=== PATIENT | female | born 1980 | race Caucasian/White ===

== ENCOUNTER 2018-06-07 09:54 | Day surgery (SDC) | payer OTHER ==
[~2018-06-07 09:54] MED LIST: ACETAMINOPHEN 1,000 MG/100 ML INJ IV ONE; DEXAMETHASONE SOD PHOS 4 MG/ML VIAL ONE; FAMOTIDINE/PF 20 MG/2 ML VIAL ONE; FENTANYL 250MCG/5ML VIAL ONE; GLYCOPYRROLATE 0.2 MG/1 ML 1 ML ONE; LACTATED RINGERS 1,000 ML IV.SOLN IV ONE; LIDOCAINE HCL/PF 2% 100 MG/5 ML VIAL IJ ONE; MIDAZOLAM HCL 2 MG/2 ML VIAL ONE; MORPHINE SULFATE 10 MG/ML VIAL ONE; ONDANSETRON HCL/PF 4 MG/ 2ML VIAL ONE; PROPOFOL 200 MG/20 ML VIAL IV ONE; ROCURONIUM BROMIDE 10 MG/ML 5ML VIAL ONE; SEVOFLURANE 250 ML LIQUID IH ONE; SUGAMMADEX 200 mg/2mL 200 MG/2 ML VIAL IV ONE; ceFAZolin SODIUM 1 GM VIAL ONE; ePHEDrine SULFATE 50 MG/1 ML IVP ONE
[2018-06-07] MEDS ORDERED: ENOXAPARIN SODIUM 40 MG/0.4 ML DISP.SYRIN SQ ONE (10:14)
[2018-06-07] MEDS ORDERED: FAMOTIDINE/PF 20 MG/2 ML VIAL ONE (10:15)
[2018-06-07] MEDS ORDERED: LACTATED RINGERS 1,000 ML IV ONE (10:15)
[2018-06-07] MEDS ORDERED: ONDANSETRON HCL/PF 4 MG/ 2ML VIAL ONE (18:24)
[2018-06-07] MEDS ORDERED: oxyCODONE/ACETAMINOPHEN 5/325 TABLET PO ONE (22:14)
== END 2018-06-07 22:30 ==
LOC: OPSURG 09:54
PROVIDERS: ATTEND Surgery
DX: K95.09 Other complications of gastric band procedure (principal); Z68.43 Body mass index [BMI] 50.0-59.9, adult; K21.9 Gastro-esophageal reflux disease without esophagitis; I10 Essential (primary) hypertension; F32.9 Major depressive disorder, single episode, unspecified; F41.9 Anxiety disorder, unspecified; Z32.02 Encounter for pregnancy test, result negative
CPT/HCPCS: 81025; J0690; J1100; J1650; J2001; J2250; J2270; J2405; J2704; J3490; S0028; 43774; A9270-GY; J7030; J7120

== ENCOUNTER 2018-10-31 09:46 | Day surgery (SDC) | payer OTHER ==
[~2018-10-31 09:46] MED LIST changes: -ACETAMINOPHEN 1,000 MG/100 ML INJ IV ONE; +BUPIV. HCL 0.25% (2.5MG/ML)/EPI. (1:200,000) PF 30 ML VIAL IJ ONE; -DEXAMETHASONE SOD PHOS 4 MG/ML VIAL ONE; +DEXAMETHASONE SODIUM PHOSPHATE 10 MG/ML VIAL ONE; +ENOXAPARIN SODIUM 40 MG/0.4 ML DISP.SYRIN SQ ONE; +FAMOTIDINE 20 MG/2 ML VIAL IV ONE; -FAMOTIDINE/PF 20 MG/2 ML VIAL ONE; -FENTANYL 250MCG/5ML VIAL ONE; -GLYCOPYRROLATE 0.2 MG/1 ML 1 ML ONE; +LABETALOL HCL 20 MG/4 ML SYRINGE IV ONE; +LIDOCAINE HCL 1% PF 300MG/30ML VIAL ONE; +LIDOCAINE HCL 2% PF 100MG/5ML VIAL IJ ONE; -LIDOCAINE HCL/PF 2% 100 MG/5 ML VIAL IJ ONE; -MORPHINE SULFATE 10 MG/ML VIAL ONE; +PROMETHAZINE HCL 25 MG/ML VIAL ONE; +SCOPOLAMINE HYDROBROMIDE 1.5MG/72HR PATCH TD ONE; +SODIUM CHLORIDE IRRIG SOLUTION 3,000 ML IRRIG.SOLN IR ONE; -SUGAMMADEX 200 mg/2mL 200 MG/2 ML VIAL IV ONE; +SUGAMMADEX SODIUM 200 MG/2 ML VIAL IV ONE; +THROMBIN (BOVINE) 20,000 UNIT VIAL TP ONE; +fentaNYL CITRATE/PF 100 MCG/2 ML INJ. ONE
[2018-10-31] MEDS ORDERED: PROMETHAZINE HCL 25 MG/ML VIAL ONE (14:40)
[2018-10-31] MEDS ORDERED: fentaNYL CITRATE/PF 100 MCG/2 ML INJ. ONE (14:47)
[2018-10-31] MEDS ORDERED: ONDANSETRON HCL/PF 4 MG/ 2ML VIAL ONE (15:16)
--- NOTE | 2018-12-23 08:47 | Operative Note ---
OPERATIVE REPORT PATIENT NAME: DEANNA RICHARDSON DATE OF : 1980 MR#: PROCEDURE DATE: 10/31/2018 PREOPERATIVE DIAGNOSIS: 1. Morbid obesity. 2. History of lap band placement. 3. Gastroesophageal reflux disease. 4. Sleep apnea. POSTOPERATIVE DIAGNOSIS: 1. Morbid obesity. 2. History of lap band placement. 3. Gastroesophageal reflux disease. 4. Sleep apnea. PROCEDURES PERFORMED: 1. Laparoscopic lysis of adhesions. 2. Laparoscopic sleeve gastrectomy. 3. Upper gastrointestinal endoscopy. SURGEON: Hermelindo Sanchez M.D. INDICATIONS FOR PROCEDURE: Ms. Deanna Richardson is a 38-year-old female who presented with features of morbid obesity. She has a history of lap band placement and subsequent removal. The patient presented for laparoscopic sleeve gastrectomy. DESCRIPTION OF PROCEDURE: After explaining to the patient in detail and informed consent was obtained, the patient was identified in the preoperative holding area. The patient was transferred to the operating room and was placed in supine position. Sequential compressive devices were placed for DVT prophylaxis. Preoperative antibiotics were given. After induction of anesthesia, the abdomen was prepped and draped in a sterile fashion. Through a left upper quadrant 1-cm incision, and using Optiview technique, the peritoneal cavity was entered and pneumoperitoneum was created. Thereafter, under direct vision, another 5-mm trocar was placed in the left midabdomen and another 15-mm trocar was placed in the right midabdomen. Through a 1-cm incision in the right subcostal region, another 5-mm trocar was placed. Through a 1-cm incision in the epigastrium, a [place] retractor was introduced and the left lobe of the liver was retracted. On initial inspection, the patient was noted to have no evidence of hiatal hernia. I took down the gastroepiploic vessels using a LigaSure. This was continued superiorly. The short gastric vessels were taken down. The gastrophrenic ligament was divided and the Angle of His was mobilized. The posterior attachments of the stomach on the pancreas were released. Distally, the gastroepiploic vessels were taken down up to about 4 cm proximal to the pylorus. At this point, a #38 [place] Bougie was introduced into the stomach and was placed along the lesser curve. The stomach was then divided in a vertical fashion with multiple Endo ASHLEY Covidien Black Load Staplers. The first firing was directed outwards towards the greater curvature. Subsequent firings were directed towards the Angle of His to create a loose sleeve around the #38 [place] bougie. The bougie was then removed and an upper GI endoscopy was performed at this point. The scope was introduced into the esophagus and was gradually advanced into the stomach. The GE junction appeared normal. The sleeve size appeared normal. No evidence of any active bleeding was noted. The stomach was insufflated with air and irrigation of fluid along the staple line revealed no evidence of air leak. The stomach was then suctioned out and the scope was removed. Absolute hemostasis was ensured. Thorough saline irrigation was given. The [place] retractor was removed. Approximately 10 mL of a lidocaine- Marcaine mix was instilled under the left hemidiaphragm. The sleeve gastrectomy specimen was removed. The abdomen was then deflated. The incisions were closed with 4-0 Monocryl. Dermabond was applied. Approximately 10 mL of a lidocaine- Marcaine mix was injected into all the incisions. The patient was awakened from anesthesia and was transferred to the recovery room in stable condition. The patient was noted to have a moderate amount of adhesions near the upper part of the stomach in the beginning which had to be taken down. This lysis of adhesions was continued for about 15 to 20 minutes at the first part of the procedure. ESTIMATED BLOOD LOSS: Approximately 100 mL. CONDITION OF THE PATIENT: Stable. FLUIDS GIVEN: Per Anesthesia note. SPECIMEN(S) SENT: Sleeve gastrectomy specimen. COMPLICATIONS: None. ANESTHESIA: General. Hermelindo Sanchez M.D. TITA/chuck (Please copy [facility] provider when applicable) Job #[id number] SORAIDA
== END 2018-10-31 16:23 | disposition other institution (70) ==
LOC: OPSURG 09:46
PROVIDERS: ATTEND Surgery
DX: E66.01 Morbid (severe) obesity due to excess calories (principal); K66.0 Peritoneal adhesions (postprocedural) (postinfection); K21.9 Gastro-esophageal reflux disease without esophagitis; G47.30 Sleep apnea, unspecified; Z98.84 Bariatric surgery status
CPT/HCPCS: J0690; J1650; J2001; J2250; J2405; J2550; J2704; J3010; A9270-GY; J7120

== ENCOUNTER 2018-10-31 16:24 | Inpatient (IN) | payer OTHER ==
[2018-10-31] MEDS ORDERED: 0.9 % SODIUM CHLORIDE 1,000 ML IV ONE (16:32)
[2018-10-31 16:46] VITALS: BMI 54.3
[2018-10-31] MEDS ORDERED: ACETAMINOPHEN 1,000 MG/100 ML INJ IV PRN (16:46)
[2018-10-31] MEDS: MORPHINE SULFATE 4 MG/ML VIAL IVP PRN ×2 (17:29→19:50)
[2018-10-31] MEDS: ONDANSETRON HCL/PF 4 MG/ 2ML VIAL IVP PRN (17:39)
--- NOTE | 2018-10-31 17:45 | History and Physical Report ---
History of Present Illnes - History of Present Illness Reason for Visit: S/P LSG History of Present Illness: Patient is a 38-year-old female who has tried multiple diets and exercise programs with no success. She has always struggled with her weight. She has tried many diet plans, diet pills, and walking and has not been able to keep it off. She noticed increased difficulty after having children. She tried the gastric band in 2010 but had complications and had it removed in 2018. Patient and surgeon decided to proceed with gastric sleeve procedure. Procedure went well (possible spleen involvement) patient will be admitted and monitored s/p surgical intervention. Patient has been on a liquid diet prior to surgery so she is a risk of dehydration s/p surgery. She is still very uncomfortable s/p surgery with increased left upper quad discomfort. She will be admitted for IV hydration to help hydrate patient until she is able to tolerate a sufficient oral intake, will treat pain with IV medication until patient is able to tolerate oral meds, IV antiemetics to help reduce episodes of nausea and/or vomiting. Patient will be monitored closely using telemetry due to hypertension (was running elevated blood pressures in recovery- requiring IV Labetolol)- (We will hold Toradol and Lovenox today d/t possible bleed of spleen). - Past Medical History Cardiac: HTN Pulmonary: Sleep Apnea (with CPAP) TELEGR[employer] R[employer]TE AIDE: Migraine, Peripheral neuropathy Gastrointestinal: GERD Psych: Anxiety, Depression Musculoskeletal: Chronic low back pain Endocrine: Hypothyroidism Grav: 0 Para: 0 - Past Surgical History Past Surgical History: Other (Lap Band in 2010- removed in 2018), Other (oopherectomy) - Past Family History Mother Family History: Other (obesity) - Past Social History Smoke: Quit (E-cigs) Alcohol: None Drugs: None Lives: With Family Domestic Violence: Negative - Health Maintenance Health Maintenance: Cholesterol, Pap Smear Influenza Vaccine: No Pneumonia Vaccine: No Resuscitation Status: Resusciation Status Resuscitation Status Full Code Review of Systems - Review of Systems Constitutional: negative: Fever, Chills Eyes: negative: conjunctivae inflammation, eyelid inflammation ENT: negative: Ear Pain, Nose Pain, Throat Pain Respiratory: SOB with Excertion. negative: Cough Cardiovascular: negative: Chest Pain, Light Headedness Gastrointestinal: Nausea, Vomiting, Abdominal Pain Genitourinary: negative: Dysuria Musculoskeletal: Back Pain Skin: Other (incision sites x 5) Neurological: negative: Weakness - Medications/Allergies Allergies/Adverse Reactions: Allergies Allergy/AdvReac Type Severity Reaction Status Date / Time tramadol Allergy Verified 10/31/18 16:45 Home Medications: Home Medications Azelastine HCl 1 - 2 mcg NS BID 10/31/18 Cetirizine HCl [All Day Allergy] 10 mg PO BID 10/31/18 Etodolac 400 mg PO BID 10/31/18 Fluticasone Propionate [Flovent 50 Mcg Diskus] 50 mcg IH DAILY 10/31/18 Gabapentin 300 mg PO TID 10/31/18 Hydrochlorothiazide 25 mg PO DAILY 10/31/18 Methocarbamol 500 mg PO BID 10/31/18 Montelukast Sodium [Singulair] 10 mg PO HS 10/31/18 Mupirocin 2% Oint. [Bactroban] 1 appl TP BID 10/31/18 Olopatadine HCl 2.5 ml OP DIRECTED 10/31/18 Pantoprazole Sodium 40 mg PO DAILY 10/31/18 Promethazine HCl [Phenergan] 25 mg PO Q6 PRN 10/31/18 Propranolol HCl [Propranolol HCl ER] 1 cap PO DAILY 10/31/18 Ranitidine HCl 300 mg PO DAILY 10/31/18 Sertraline HCl [Zoloft] 150 mg PO DAILY 10/31/18 Sumatriptan Succinate [Imitrex] 100 mg PO DAILY PRN 10/31/18 Temazepam 30 mg PO DAILY 10/31/18 Current Inpatient Medications: Current Inpatient Medications Acetaminophen (Ofirmev) 1,000 mg IV Q6H PRN PRN Reason: For Mild Breakthrough Pain Stop: 11/04/18 16:45 Hydrocodone Bitart/Acetaminophen (Hycet 7.5-325mg/15 Ml Ud Cup) 15 ml PO Q4 PRN PRN Reason: Moderate Pain (Score 5-7) Stop: 11/04/18 16:45 Cefazolin Sodium/Dextrose (Ancef 1 Gm/50 Ml-Dextrose) 1 gm IV Q8H [facility] Stop: 11/01/18 04:31 Enoxaparin Sodium (Lovenox) 40 mg SQ DAILY [facility] Stop: 11/15/18 08:59 Famotidine (Pepcid) 20 mg IVP BID [facility] Stop: 11/04/18 20:59 Gabapentin (Neurontin) 300 mg PO TID [facility] Hydrochlorothiazide (Hydrodiuril) 25 mg PO DAILY [facility] Sodium Chloride (Normal Saline) 1,000 mls @ 150 mls/hr IV Q8H [facility] Promethazine HCl 25 mg/ Sodium (Chloride) 51 mls @ 200 mls/hr IV Q6 PRN PRN Reason: Nausea / Vomiting Stop: 11/04/18 16:45 Morphine Sulfate () 4 mg IVP Q2 PRN PRN Reason: PAIN 8-10 Stop: 11/01/18 16:45 Last Admin: 10/31/18 17:29 Dose: 4 mg Ondansetron HCl (Zofran) 4 mg IVP Q6H PRN PRN Reason: Nausea / Vomiting Stop: 11/04/18 16:45 Exam - Exam Vital Signs: Vital Signs (72 hours) 10/31/18 10/31/18 10/31/18 16:30 16:39 17:00 Temperature 96.4 F L 96.4 F L 96.6 F L Pulse Rate [ 68 68 65 Left] Pulse Rate [ 68 Right] Respiratory 20 20 20 Rate Blood Pressure 160/90 [Left Arm] Blood Pressure 181/109 169/120 [Right Arm] O2 Sat by Pulse 97 97 98 Oximetry 10/31/18 17:17 Temperature Pulse Rate [ Left] Pulse Rate [ Right] Respiratory Rate Blood Pressure 160/100 [Left Arm] Blood Pressure [Right Arm] O2 Sat by Pulse Oximetry General: Alert, Oriented to Person, Oriented to Place, Cooperative, Moderate distress (still recovering from anesthesia- lethargic), Morbidly Obese HEENT: PERRLA, Nose Mucous membr. moist/[place], Other (dry mucous membranes) Neck: Normal Range of Motion Carotids: No bruit Lungs: Clear to auscultation, Normal air movement Cardiovascular: Normal S1, Normal S2 Abdomen: Soft, Other (tenderness), Decreased Bowel Sounds Integumentary: Warm, Dry, Pale, Other (incision site x 5 intact- without redness/erythema) Extremities: No edema, Normal pulses, No tenderness/swelling Neurological: Strength Equal Bilat, Sensation intact, Generalized Weakness Psych/Mental Status: Mental status NL Assessment/Plan - Assessment/Plan (1) Status post gastric surgery Status: Acute Current Visit: Yes Plan: Plan to admit for IV hydration, IV pain meds, and IV antiemetics. SCDs to help prevent DVTs, IS and frequent ambulation will be implemented. Start ice chips and advance diet as tolerated. Will hold Toradol and Lovenox due to possible bleed. (2) Morbid obesity due to excess calories Status: Acute Current Visit: Yes Plan: Patient is s/p gastric sleeve. We will assist patient with implementing gastric sleeve diet protocol starting with ice chips and clear liquids and advancing as tolerated (3) Hypertension Status: Acute Current Visit: Yes Qualifiers: Hypertension type: essential hypertension Qualified Code(s): I10 - Essential (primary) hypertension Assessment: Elevated blood pressures- Labetolol IV given in PACU Plan: Will continue with home blood pressure medications due to hypertension (4) Peripheral neuropathy Status: Acute Current Visit: Yes Assessment: pt states that she has really bad peripheral neuropathy and feels that she still needs her gabapentin. She states that the SCDs increase the discomfort but due to possible bleed and having to hold toradol we will give the Gabapentin. Plan: Will continue with Gabapentin as tolerated (5) Chronic low back pain Status: Acute Current Visit: Yes Assessment: Will continue to monitor Plan: Will implement K-Pad as needed (6) Anxiety and depression Status: Acute Current Visit: Yes Assessment: Will monitor Plan: Will implement medication as needed and once patient can tolerate PO (7) Obstructive sleep apnea Status: Acute Current Visit: Yes Assessment: stable Plan: Will use CPAP (8) GERD (gastroesophageal reflux disease) Status: Acute Current Visit: Yes Assessment: Patient has been taking omeprazole prior to surgery Plan: Will give Pepcid IV BID VTE Assessment - RISK FACTOR SCORE VTE RISK FACTOR SCORES: OBESITY, MAJOR SURGERY/ANESTHESIA TIME > 1 HOUR - RISK VTE MODERATE RISK: SCORE OF 2 (RISK PROXIMAL DVT 2-4%) PROPHYAXIS NEEDED (SCDs while in bed, frequent ambulation, Incentive spirometry)
[2018-10-31] MEDS: 0.9 % SODIUM CHLORIDE 1,000 ML IV SCH ×2 (18:29→23:24)
[2018-10-31] MEDS: GABAPENTIN 300 MG CAPSULE PO SCH (18:36)
[2018-10-31] MEDS ORDERED: PROMETHAZINE HCL 25 MG/ML VIAL ONE (19:46)
[2018-10-31] MEDS ORDERED: 0.9 % SODIUM CHLORIDE 50 ML IV ONE (19:46)
[2018-10-31] MEDS: PROMETHAZINE HCL 25 MG in 0.9 % SODIUM CHLORIDE 50 ML IV PRN (19:57)
[2018-10-31] MEDS: FAMOTIDINE 20 MG/2 ML VIAL IVP SCH (20:49)
[2018-10-31] MEDS: ceFAZolin SODIUM 1 GM/50 ML PIGGYBACK IV SCH (20:52)
[2018-10-31 21:13] LABS: BASOPHILS % 0.4 % (0.0-1.5); NEUTROPHILS # 14.2 # k/uL (1.4-7.7)
[2018-11-01] MEDS: ONDANSETRON HCL/PF 4 MG/ 2ML VIAL IVP PRN ×3 (01:17→16:25)
[2018-11-01] MEDS: MORPHINE SULFATE 4 MG/ML VIAL IVP PRN ×2 (01:28→08:21)
[2018-11-01] MEDS: ceFAZolin SODIUM 1 GM/50 ML PIGGYBACK IV SCH (05:28)
[2018-11-01] MEDS: 0.9 % SODIUM CHLORIDE 1,000 ML IV SCH (06:17)
[2018-11-01 06:26] LABS: BASOPHILS % 0.6 % (0.0-1.5); NEUTROPHILS # 12.1 # k/uL (1.4-7.7)
[2018-11-01 06:40] LABS: eGFR (Non-African) > 60
[2018-11-01] MEDS: GABAPENTIN 300 MG CAPSULE PO SCH ×3 (08:13→18:03)
[2018-11-01] MEDS: FAMOTIDINE 20 MG/2 ML VIAL IVP SCH ×2 (08:17→20:44)
[2018-11-01] MEDS ORDERED: ENOXAPARIN SODIUM 40 MG/0.4 ML DISP.SYRIN SQ SCH (09:00)
[2018-11-01] MEDS ORDERED: hydroCHLOROthiazide 25 MG TABLET PO SCH (09:00)
[2018-11-01] MEDS: HYDROcodone-ACETAMIN 7.5-325/15ML SOLN UD CUP PO PRN ×2 (16:21→20:40)
--- NOTE | 2018-11-01 17:12 | Inpatient Progress Note ---
Subjective - Required Recertification Statement I anticipate X number of days because-include discharge plan: 1 - Review of Systems Events since last encounter: Patient states that she had a difficult night. She had some nausea and dry heaves throughout the night- she was encouraged to sip her drinks and wait in between drinks- she states that her pain is tolerable and pain medications are working. Left upper quad discomfort has improved. She has been up walking in the anguiano, wearing SCDs while in bed, and using Incentive Spirometry- incision sites are dry and intact. Blood pressures have been slightly elevated- we are monitoring closely and implementing home blood pressure medications. General: Fatigue. Denies: Chills HEENT: Denies: Dysphasia Pulmonary: Denies: Dyspnea Cardiovascular: Denies: Chest Pain, Light Headedness Gastrointestinal: Nausea, Vomiting, Abdominal Pain Genitourinary: Denies: Dysuria Musculoskeletal: Denies: Back Pain Neurological: Denies: Weakness Objective - Exam Vitals and I&O: Vital Signs Temp 96.4 F L 11/01/18 13:31 Pulse 75 11/01/18 13:31 Resp 20 11/01/18 13:31 BP 174/88 11/01/18 13:31 Pulse Ox 95 11/01/18 14:00 Intake & Output 10/31/18 11/01/18 11/01/18 23:59 11:59 23:59 Intake Total 300 1870 880 Output Total 0 600 1000 Balance 300 1270 -120 Weight 152.861 kg Intake: IV 300 1800 760 right forarm 300 1800 760 Oral 0 70 120 Output: Urine 0 600 1000 Other: Voiding Method Toilet Toilet # Voids 0 1 # Bowel Movements 0 0 General: Alert, Oriented to Person, Oriented to Place, Oriented to Time, Cooperative, Mild distress, Morbidly Obese HEENT: PERRLA, Mouth Mucous membr. moist/[place], Nose Mucous membr. moist/[place] Neck: Supple, +2 carotid pulse wo bruit Lungs: Clear to auscultation, Normal air movement, Speaks full Sentences Cardiovascular: Normal S1, Normal S2 Abdomen: Normal bowel sounds, Soft, Other (Tenderness) Extremities: No edema, Normal pulses, No tenderness/swelling Skin: [place], Warm, Dry, Other (incision sites are dry and intact without redness/erythema) Neurological: Normal gait, Normal speech, Strength Equal Bilat, Sensation intact Psych/Mental Status: Mental status NL, Mood NL, Appropriate Affect, Intact Judgment - Results Results: Laboratory Results WBC 15.40 K/ul (4.00-12.00) H 11/01/18 06:10 RBC 3.89 M/ul (3.90-5.20) L 11/01/18 06:10 Hgb 11.8 g/dL (11.5-16.0) 11/01/18 06:10 Hct 35.8 % (34.5-46.5) 11/01/18 06:10 MCV 92.0 fl (80.0-100.0) 11/01/18 06:10 MCH 30.3 pg (28.0-34.0) 11/01/18 06:10 MCHC 32.9 g/dL (30.0-36.0) 11/01/18 06:10 RDW 16.2 % (11.3-14.3) H 11/01/18 06:10 Plt Count 253 K/mm3 (130-400) 11/01/18 06:10 Neut % (Auto) 78.5 % (39.0-79.0) 11/01/18 06:10 Lymph % (Auto) 12.2 % (16.0-50.0) L 11/01/18 06:10 [place] % (Auto) 7.8 % (0.0-11.0) 11/01/18 06:10 Eos % (Auto) 0.9 % (0.0-6.8) 11/01/18 06:10 Baso % (Auto) 0.6 % (0.0-1.5) 11/01/18 06:10 Neut # (Auto) 12.1 # k/uL (1.4-7.7) H 11/01/18 06:10 Lymph # (Auto) 1.9 # k/uL (0.6-4.0) 11/01/18 06:10 [place] # (Auto) 1.2 # k/uL (0.0-0.9) H 11/01/18 06:10 Eos # (Auto) 0.1 # k/uL (0.0-0.6) 11/01/18 06:10 Baso # (Auto) 0.1 # k/uL (0.0-0.5) 11/01/18 06:10 Sodium 138 mmol/L (137-145) 11/01/18 06:10 Potassium 3.8 mmol/L (3.5-5.1) 11/01/18 06:10 Chloride 106 mmol/L (98-107) 11/01/18 06:10 Carbon Dioxide 27 mmol/L (22-30) 11/01/18 06:10 BUN 9 mg/dL (7-17) 11/01/18 06:10 Creatinine 0.76 mg/dL (0.52-1.04) 11/01/18 06:10 Estimated Creat Clear 282 11/01/18 06:10 Est GFR ( Amer) > 60 (60-) 11/01/18 06:10 Est GFR (Non-Af Amer) > 60 (60-) 11/01/18 06:10 Glucose 112 mg/dL (74-106) H 11/01/18 06:10 Calcium 8.0 mg/dL (8.4-10.2) L 11/01/18 06:10 Total Bilirubin 0.6 mg/dL (0.2-1.3) 11/01/18 06:10 AST 69 U/L (15-46) H 11/01/18 06:10 ALT 96 U/L (0-35) H 11/01/18 06:10 Alkaline Phosphatase 64 U/L (38-126) 11/01/18 06:10 Total Protein 6.7 g/dL (6.3-8.2) 11/01/18 06:10 Albumin 3.6 g/dL (3.5-5.0) 11/01/18 06:10 Assessment/Plan - Assessment/Plan (1) Status post gastric surgery Status: Acute Current Visit: Yes Assessment: Incision without redness or drainage, positive bowel sounds, minimal discomfort, belching and flatus, no extremity pain or edema, had some nausea with dry heaves, elevated blood pressures. Plan: Will continue to have patient ambulate frequently in the anguiano, wear SCDs while in bed, frequent use of incentive spirometer, continue IVF until patient can take in sufficient oral intake (2) Morbid obesity due to excess calories Status: Acute Current Visit: Yes Assessment: Continuing with bariatric diet- ice chips and clear liquids- patient had some nausea and dry heaves Plan: Will continue with ice chips and clear liquid diet (3) Hypertension Status: Acute Current Visit: Yes Qualifiers: Hypertension type: essential hypertension Qualified Code(s): I10 - Essential (primary) hypertension Assessment: Elevated blood pressures- continuing to monitor closely Plan: Will continue patient on home medication (4) Peripheral neuropathy Status: Acute Current Visit: Yes Assessment: Patient having neuropathy pain- but gabapentin working Plan: Will continue with Gabapentin (5) Chronic low back pain Status: Acute Current Visit: Yes Assessment: Back pain is controlled at this time Plan: May implement K-pad as needed (6) Anxiety and depression Status: Acute Current Visit: Yes Assessment: Stable Plan: Will implement home medications once patient is able to tolerate PO (7) Obstructive sleep apnea Status: Acute Current Visit: Yes Assessment: Stable Plan: Use CPAP (8) GERD (gastroesophageal reflux disease) Status: Acute Current Visit: Yes Assessment: Was taking Omeprazole daily prior to surgery Plan: Will continue with IV pepcid BID
[2018-11-01] MEDS: PROMETHAZINE HCL 25 MG in 0.9 % SODIUM CHLORIDE 50 ML IV PRN (20:41)
[2018-11-02] MEDS: HYDROcodone-ACETAMIN 7.5-325/15ML SOLN UD CUP PO PRN ×2 (01:30→05:48)
[2018-11-02] MEDS: ONDANSETRON HCL/PF 4 MG/ 2ML VIAL IVP PRN (05:49)
--- NOTE | 2018-11-02 06:50 | Discharge Summary ---
Discharge Summary - Discharge [facility] Admission Date: 10/31/18 Discharge Date: 11/02/18 Discharge To: Home History of Present Illness: Patient is a 38-year-old female who has tried multiple diets and exercise programs with no success. She has always struggled with her weight. She has tried many diet plans, diet pills, and walking and has not been able to keep it off. She noticed increased difficulty after having children. She tried the gastric band in 2010 but had complications and had it removed in 2018. Patient and surgeon decided to proceed with gastric sleeve procedure. Procedure went well (possible spleen involvement) patient was admitted and monitored s/p surgical intervention. Patient had been on a liquid diet prior to surgery so she was a risk of dehydration s/p surgery. She was very uncomfortable s/p surgery with increased left upper quad discomfort. She was admitted for IV hydration to help hydrate patient until she was able to tolerate a sufficient oral intake, she was treated with IV pain medication until patient was able to tolerate oral meds, IV antiemetics to help reduce episodes of nausea and/or vomiting. Patient was monitored closely using telemetry due to hypertension (was running elevated blood pressures in recovery- requiring IV Labetolol)- (Toradol and Lovenox were held d/t possible bleed of spleen). Condition at Discharge: Stable Home Medications: Ambulatory Orders Medication Instructions Recorded Azelastine HCl 1 - 2 mcg NS BID 10/31/18 Cetirizine HCl [All Day Allergy] 10 mg PO BID 10/31/18 Etodolac 400 mg PO BID 10/31/18 Fluticasone Propionate [Flovent 50 50 mcg IH DAILY 10/31/18 Mcg Diskus] Gabapentin 300 mg PO TID 10/31/18 Hydrochlorothiazide 25 mg PO DAILY 10/31/18 Methocarbamol 500 mg PO BID 10/31/18 Montelukast Sodium [Singulair] 10 mg PO HS 10/31/18 Mupirocin 2% Oint. [Bactroban] 1 appl TP BID 10/31/18 Olopatadine HCl 2.5 ml OP DIRECTED 10/31/18 Pantoprazole Sodium 40 mg PO DAILY 10/31/18 Promethazine HCl [Phenergan] 25 mg PO Q6 PRN 10/31/18 Propranolol HCl [Propranolol HCl 1 cap PO DAILY 10/31/18 ER] Ranitidine HCl 300 mg PO DAILY 10/31/18 Sertraline HCl [Zoloft] 150 mg PO DAILY 10/31/18 Sumatriptan Succinate [Imitrex] 100 mg PO DAILY PRN 10/31/18 Temazepam 30 mg PO DAILY 10/31/18 Consultations this Visit: None Procedures this Visit: Other (S/P LSG) Allergies/Adverse Reactions: Allergies Allergy/AdvReac Type Severity Reaction Status Date / Time tramadol Allergy Verified 10/31/18 16:45 Discharge Summary: Patient is a 38-year-old female that underwent the gastric sleeve procedure and has done well. She has been very cooperative with her care by ambulating frequently, using her incentive spirometer, and wearing her SCDs while in bed. She has been compliant with her diet during hospitalization. She is having minimal discomfort at this time and minimal nausea- she has is passing gas and belching. She is aware of discharge instructions and what she can and cannot do post surgical- she is aware of the strict diet she must follow to decrease disco mfort and have success after procedure. She has family support and family will be taking her home- medications written by surgeon given to patient. She feels ready to go home. Hospital Course: Patient received IV pain medications, antiemetics, and IVF and was transitioned to oral. She has been up ambulating and using incentive spirometer. - Final Diagnosis (1) Status post gastric surgery Problems: Incision without redness or drainage, positive bowel sounds, minimal discomfort, belching and flatus, no extremity pain or edema Right or Left: Right (2) Morbid obesity due to excess calories Problems: Continue with bariatric sleeve diet- clear liquids today and start full liquids tomorrow Right or Left: Right (3) Hypertension Problems: Stable- monitor blood pressures daily- keep log and take to follow up appointment Right or Left: Right (4) Peripheral neuropathy Problems: CONTINUE ON GABAPENTIN Right or Left: Right (5) Chronic low back pain Problems: STABLE Right or Left: Right (6) Anxiety and depression Problems: STABLE Right or Left: Right (7) Obstructive sleep apnea Problems: STABLE Right or Left: Right (8) GERD (gastroesophageal reflux disease) Problems: CONTINUE ON OMEPRAZOLE Right or Left: Right
[2018-11-02 08:28] VITALS: BP 124/72
== END 2018-11-02 08:28 | disposition home or self-care (01) | DRG 621 ==
LOC: SOUTH 16:24
PROVIDERS: ADMIT Nurse Practitioner Family; ATTEND Nurse Practitioner Family
PROC: 0DB64Z3 Excision of Stomach, Percutaneous Endoscopic Approach, Vertical (ICD-10-PCS; principal; 2018-10-31)
PROC: 0DN64ZZ Release Stomach, Percutaneous Endoscopic Approach (ICD-10-PCS; 2018-10-31)
DX: E66.01 Morbid (severe) obesity due to excess calories (principal); E03.9 Hypothyroidism, unspecified; G43.909 Migraine, unspecified, not intractable, without status migrainosus; K21.9 Gastro-esophageal reflux disease without esophagitis; K66.0 Peritoneal adhesions (postprocedural) (postinfection); F41.9 Anxiety disorder, unspecified; G89.29 Other chronic pain; M54.5 Low back pain; G62.9 Polyneuropathy, unspecified; R11.2 Nausea with vomiting, unspecified; G47.33 Obstructive sleep apnea (adult) (pediatric); F32.9 Major depressive disorder, single episode, unspecified; Z68.43 Body mass index [BMI] 50.0-59.9, adult; Z88.5 Allergy status to narcotic agent; Z87.891 Personal history of nicotine dependence; Z79.1 Long term (current) use of non-steroidal anti-inflammatories (NSAID); Z79.51 Long term (current) use of inhaled steroids; Z79.899 Other long term (current) drug therapy
CPT/HCPCS: 36415; 80053; 85025; 97116; 97161; 97165; 97530; A9270; J1650; J2270; J2405; J2550; J7030; 99221